=== PATIENT | male | born 1975 | race Hispanic/Latino ===

== ENCOUNTER 2019-11-03 12:18 | Emergency (ER) | payer SELFPAY ==
[2019-11-03] MEDS ORDERED: SODIUM CHLORIDE 0.9% 1000 ML 1,000 ML IV ONE ×2 (12:25→12:49)
[2019-11-03] MEDS ORDERED: PANTOPRAZOLE 40 MG INJ IV ONE (12:26)
--- NOTE | 2019-11-03 12:38 | Emergency Department Report ---
ED GI Bleed HPI - General Stated complaint: GI BLEED Time Seen by Provider: 11/03/19 12:23 Source: patient, EMS Mode of arrival: Stretcher Limitations: No Limitations - History of Present Illness Initial comments: 44-year-old male with a past medical history of [id number] diabetes and chronic alcohol abuse presents to the hospital complaining of vomiting blood multiple times since this a.m. Patient has had at least 4-5 episodes prior to arrival of grossly bloody vomitus. Patient feels his heart racing and some mild left-sided chest tightness. He denies abdominal pain, melena, hematochezia, or history of previous GI bleed. Patient takes metformin for his diabetes. Patient states he has been diagnosed with "an ulcer" in the past due to clinical symptoms but denies having endoscopy or colonoscopy in the past. Patient denies previous abdominal surgeries. Patient denies recent aspirin or NSAID use. Patient drinks about a pint of vodka daily with last drink last night. Denies history of previous alcohol withdrawal tremors, alcohol withdrawal seizures, or diagnosis of cirrhosis. PMD: None EMS EKG reviewed sinus tach rate 125 with PVCs and T wave inversions in [address] elevation [place]. - Related Data Allergies Allergy/AdvReac Type Severity Reaction Status Date / Time No Known Allergies Allergy Unverified 11/03/19 12:55 ED Review of Systems ROS: Stated complaint: GI BLEED Other details as noted in HPI Comment: All other systems reviewed and negative ED Physical Exam - Other Other exam information: General: No acute distress Head: Atraumatic Eyes: normal appearance ENT: Moist mucous membranes Neck: Normal appearance, no midline tenderness Chest: Clear to auscultation bilaterally CV: Tachycardia regular rhythm Abdomen: Soft, normal bowel sounds, nontender, nondistended, no rebound or guarding Back: Normal inspection Extremity: Normal inspection, full range of motion, no tremor Neuro: Alert O x 3, no facial asymmetry, speech clear, no gross motor sensory deficit Psych: Appropriate behavior Skin: No rash ED Course Vital Signs 11/03/19 11/03/19 11/03/19 12:39 14:48 16:05 Temperature 98.0 F 98.0 F 97.7 F Pulse Rate 126 H 112 H 111 H Respiratory 22 21 28 H Rate Blood Pressure 138/57 136/69 122/46 Blood Pressure 147/67 [Left] O2 Sat by Pulse 98 97 99 Oximetry 11/03/19 11/03/19 16:18 16:25 Temperature Pulse Rate 111 H 111 H Respiratory 28 H 24 Rate Blood Pressure 136/68 136/68 Blood Pressure [Left] O2 Sat by Pulse 95 98 Oximetry - Reevaluation(s) Reevaluation #1: 11/03/19 12:49 pt is actively vomiting up blood in the ed 11/03/19 13:39 HR improving with IVF but still tachycardic, bp stable, vomiting improved after zofran, - Consultations Consultation #1: 11/03/19 13:00 GI MD paged 11/03/19 13:30 call back from GI MD Dr Pham, informed of upper gi bleed and possible need for emergent endoscopy. Requesting covid test prior however covid tests are only collected once a day at 11am therefore can not be performed today. 11/03/19 18:54 I received call from Dr. gongora at this time the patient has been accepted to [facility] ICU by ICU attending Dr. Cook and bowling ball grader and marker Dr. Augustin ED Medical Decision Making - Lab Data Result diagrams: 11/03/19 17:15 11/03/19 12:35 Lab Results 11/03/19 11/03/19 11/03/19 Range/Units 12:35 12:35 12:35 WBC 7.9 (4.5-11.0) K/mm3 RBC 3.15 L (3.65-5.03) M/mm3 Hgb 9.8 L (11.8-15.2) gm/dl Hct 29.1 L (35.5-45.6) % MCV 92 (84-94) fl MCH 31 (28-32) pg MCHC 34 (32-34) % RDW 18.8 H (13.2-15.2) % Plt Count 75 L (140-440) K/mm3 Lymph % (Auto) 25.8 (13.4-35.0) % [place] % (Auto) 9.5 H (0.0-7.3) % Eos % (Auto) 0.9 (0.0-4.3) % Baso % (Auto) 0.6 (0.0-1.8) % Lymph # 2.0 (1.2-5.4) K/mm3 [place] # 0.7 (0.0-0.8) K/mm3 Eos # 0.1 (0.0-0.4) K/mm3 Baso # 0.0 (0.0-0.1) K/mm3 Seg Neutrophils % 63.2 (40.0-70.0) % Seg Neutrophils # 5.0 (1.8-7.7) K/mm3 PT 18.5 H (12.2-14.9) Sec. INR 1.51 H (0.87-1.13) APTT 28.8 (24.2-36.6) Sec. Sodium 140 (137-145) mmol/L Potassium 3.9 (3.6-5.0) mmol/L Chloride 101.5 (98-107) mmol/L Carbon Dioxide 20 L (22-30) mmol/L Anion Gap 22 mmol/L BUN 22 H (9-20) mg/dL Creatinine 0.5 L (0.8-1.3) mg/dL Estimated GFR > 60 ml/min BUN/Creatinine Ratio 44 % Glucose 310 H (75-100) mg/dL POC Glucose (70-105) Calcium 8.1 L (8.4-10.2) mg/dL Magnesium 1.50 L (1.7-2.3) mg/dL Total Bilirubin 2.70 H (0.1-1.2) mg/dL AST 84 H (5-40) units/L ALT 46 (7-56) units/L Alkaline Phosphatase 127 (35-129) units/L Troponin T (0.00-0.029) ng/mL Total Protein 7.1 (6.3-8.2) g/dL Albumin 2.7 L (3.9-5) g/dL Albumin/Globulin Ratio 0.6 % Plasma/Serum Alcohol (0-0.07) % Blood Type Antibody Screen Crossmatch 11/03/19 11/03/19 11/03/19 Range/Units 12:35 12:35 12:35 WBC (4.5-11.0) K/mm3 RBC (3.65-5.03) M/mm3 Hgb (11.8-15.2) gm/dl Hct (35.5-45.6) % MCV (84-94) fl MCH (28-32) pg MCHC (32-34) % RDW (13.2-15.2) % Plt Count (140-440) K/mm3 Lymph % (Auto) (13.4-35.0) % [place] % (Auto) (0.0-7.3) % Eos % (Auto) (0.0-4.3) % Baso % (Auto) (0.0-1.8) % Lymph # (1.2-5.4) K/mm3 [place] # (0.0-0.8) K/mm3 Eos # (0.0-0.4) K/mm3 Baso # (0.0-0.1) K/mm3 Seg Neutrophils % (40.0-70.0) % Seg Neutrophils # (1.8-7.7) K/mm3 PT (12.2-14.9) Sec. INR (0.87-1.13) APTT (24.2-36.6) Sec. Sodium (137-145) mmol/L Potassium (3.6-5.0) mmol/L Chloride (98-107) mmol/L Carbon Dioxide (22-30) mmol/L Anion Gap mmol/L BUN (9-20) mg/dL Creatinine (0.8-1.3) mg/dL Estimated GFR ml/min BUN/Creatinine Ratio % Glucose (75-100) mg/dL POC Glucose (70-105) Calcium (8.4-10.2) mg/dL Magnesium (1.7-2.3) mg/dL Total Bilirubin (0.1-1.2) mg/dL AST (5-40) units/L ALT (7-56) units/L Alkaline Phosphatase (35-129) units/L Troponin T < 0.010 (0.00-0.029) ng/mL Total Protein (6.3-8.2) g/dL Albumin (3.9-5) g/dL Albumin/Globulin Ratio % Plasma/Serum Alcohol 0.09 H (0-0.07) % Blood Type A POSITIVE Antibody Screen Negative Crossmatch See Detail 11/03/19 Range/Units 12:56 WBC (4.5-11.0) K/mm3 RBC (3.65-5.03) M/mm3 Hgb (11.8-15.2) gm/dl Hct (35.5-45.6) % MCV (84-94) fl MCH (28-32) pg MCHC (32-34) % RDW (13.2-15.2) % Plt Count (140-440) K/mm3 Lymph % (Auto) (13.4-35.0) % [place] % (Auto) (0.0-7.3) % Eos % (Auto) (0.0-4.3) % Baso % (Auto) (0.0-1.8) % Lymph # (1.2-5.4) K/mm3 [place] # (0.0-0.8) K/mm3 Eos # (0.0-0.4) K/mm3 Baso # (0.0-0.1) K/mm3 Seg Neutrophils % (40.0-70.0) % Seg Neutrophils # (1.8-7.7) K/mm3 PT (12.2-14.9) Sec. INR (0.87-1.13) APTT (24.2-36.6) Sec. Sodium (137-145) mmol/L Potassium (3.6-5.0) mmol/L Chloride (98-107) mmol/L Carbon Dioxide (22-30) mmol/L Anion Gap mmol/L BUN (9-20) mg/dL Creatinine (0.8-1.3) mg/dL Estimated GFR ml/min BUN/Creatinine Ratio % Glucose (75-100) mg/dL POC Glucose 304 H (70-105) Calcium (8.4-10.2) mg/dL Magnesium (1.7-2.3) mg/dL Total Bilirubin (0.1-1.2) mg/dL AST (5-40) units/L ALT (7-56) units/L Alkaline Phosphatase (35-129) units/L Troponin T (0.00-0.029) ng/mL Total Protein (6.3-8.2) g/dL Albumin (3.9-5) g/dL Albumin/Globulin Ratio % Plasma/Serum Alcohol (0-0.07) % Blood Type Antibody Screen Crossmatch - EKG Data -: EKG Interpreted by [place] EKG shows normal: sinus rhythm, intervals (qtc 531) Rate: tachycardia (110) - Medical Decision Making Patient with a history of chronic alcohol abuse presents to the hospital with leidy hematemesis. Multiple episodes noted in the ED. Patient has a hemoglobin 9.8, mild thrombocytopenia, and mild coagulopathy all supporting chronic alcohol abuse. Patient denies history of alcohol cirrhosis and has a previous clinical diagnosis of ulcer without confirmation via endoscopy. Patient treated emergently in the ED with normal saline boluses, banana bag, Protonix bolus and drip, octreotide bolus and drip, and emergent GI consultation for endoscopy. Patient empirically provided Rocephin in preparation for endoscopy. Patient symptomatically treated with Zofran and Ativan 0.5 mg to help with nausea and tachycardia which could also be due to mild alcohol withdrawal although patient does not have any tremors. GI consulted requesting COVID test prior to endoscopy however, this is not available at this facility. Hospitalist informed for admission and GI come to the ED to evaluate patient at time of disposition pt was scoped by gi and had esophageal varices banded and continued to have hematemesis. GI recommended transfer to a facility that can perform TIPS procedure. Dr Gongora spoke to ICU attending Dr. Cook and bowling ball grader and marker Dr. Augustin who accepted patient to ICU at [facility] at 6:57 PM Critical Care Time: Yes Critical care time in (mins) excluding proc time.: 35 Critical care attestation.: If time is entered above; I have spent that time in minutes in the direct care of this critically ill patient, excluding procedure time. ED Disposition Clinical Impression: Hematemesis, Alcoholic, Hypomagnesemia, Thrombocytopenia, Coagulopathy, Diabetes Disposition: OP ADMIT IP TO THIS HOSP Is pt being admited?: Yes Condition: Stable Time of Disposition: 13:38
[2019-11-03] MEDS ORDERED: ONDANSETRON 4 MG/2 ML INJ IV ONE (12:39)
[2019-11-03 12:46] LABS: Basophils % (Auto) 0.6 % (0.0-1.8); Eosinophils # (Auto) 0.1 K/mm3 (0.0-0.4); Eosinophils % (Auto) 0.9 % (0.0-4.3); Hematocrit 29.1 % (35.5-45.6); Hemoglobin 9.8 gm/dl (11.8-15.2); Lymphocytes % (Auto) 25.8 % (13.4-35.0); Mean Corpuscular HGB Conc 34 % (32-34); Mean Corpuscular Volume 92 fl (84-94); Monocytes # (Auto) 0.7 K/mm3 (0.0-0.8); Monocytes % (Auto) 9.5 % (0.0-7.3); Platelet Count 75 K/mm3 (140-440); Red Blood Count 3.15 M/mm3 (3.65-5.03); Red Cell Distribution Width 18.8 % (13.2-15.2)
[2019-11-03] MEDS ORDERED: OCTREOTIDE 50 MCG/1 ML INJ IV ONE (12:50)
[2019-11-03] MEDS ORDERED: OCTREOTIDE 500 MCG in SODIUM CHLORIDE 0.9% 100 ML IV ONE (12:50)
[2019-11-03] MEDS ORDERED: cefTRIAXone/NS 1 GM/50 ML 1 GM/50 ML BAG IV ONE (12:52)
[2019-11-03 12:56] LABS: INR 1.51 (0.87-1.13); Partial Thromboplastin Time 28.8 Sec. (24.2-36.6)
[2019-11-03] MEDS ORDERED: LORazepam 2 MG/ML VIAL IV ONE (12:58)
[2019-11-03] MEDS ORDERED: PANTOPRAZOLE 80 MG in SODIUM CHLORIDE 0.9% 100 ML IV SCH (13:00)
[2019-11-03 13:09] LABS: Alanine Aminotransferase 46 units/L (7-56); Albumin 2.7 g/dL (3.9-5); Blood Urea Nitrogen 22 mg/dL (9-20); Calcium 8.1 mg/dL (8.4-10.2); Hemolysis Index 8
[2019-11-03 13:16] LABS: BUN/Creatinine Ratio 44
[2019-11-03] MEDS ORDERED: MAGNESIUM SULFATE 2 GM/50 ML BAG IV ONE (13:18)
[2019-11-03] MEDS ORDERED: THIAMINE 100 MG, FOLIC ACID 1 MG, MULTIPLE VITAMIN INJ, ADULT 10 ML in SODIUM CHLORIDE ... IV ONE ×2 (13:25→20:00)
--- NOTE | 2019-11-03 13:39 | History and Physical Report ---
History of Present Illness Chief complaint: throwing up blood History of present illness: 44 YO Male with DM, Obesity Hypoventilation Syndrome, Metabolic Syndrome, ETOH Dependence presents to ED for evaluation. Patient states that he has experienced multiple episodes of "vomiting up blood" over the past 6 hours. Pat leatha reports at least 45 episodes of large volume bloody vomitus. Patient also reports feeling weak and feeling as though his heart was racing. EMS was notified and upon arrival the patient was found to be in distress and subsequently transported to [facility] for further care and evaluation of the afor ementioned symptoms. Patient seen and evaluated in the emergency department. Lab and imaging studies reviewed. Patient found to have upper GI bleed complicated by acute blood loss anemia suspected secondary to esophageal varices. GI team was consulted. Patient was seen and evaluated and underwent urgent endoscopic evaluation in the emergency department. Patient was found to have grade 4 esophageal varices and underwent banding as per GI team. Patient continues to have large-volume hematemesis after banding. Patient continues to have persistent tachycardia as well as symptomatic anemia. Patient initiated on octreotide drip, Protonix therapy, as well as packed red blood cell transfusion. Patient status discussed with gastroenterology team, as well as ED team and patient is recommended to be transferred to higher level of care for further intervention. Patient transfer is pending at this time. Past History Past Medical History: diabetes, other (See HPI) Past Surgical History: No surgical history, Other (Reviewed) Social history: single, alcohol abuse. denies: smoking Family history: diabetes, hypertension Medications and Allergies Allergies Allergy/AdvReac Type Severity Reaction Status Date / Time No Known Allergies Allergy Unverified 11/03/19 12:55 Active Meds: Active Medications Thiamine HCl 100 mg/ Folic Acid 1 mg/ Multivitamins/Minerals 10 ml/ Sodium Chloride 1,011.2 mls @ 500 mls/hr IV ONCE ONE Stop: 11/03/19 15:26 Last Admin: 11/03/19 13:25 Dose: 500 mls/hr Documented by: Pantoprazole Sodium 80 mg/ (Sodium Chloride) 100 mls @ 10 mls/hr IV DIRECT LEDY Sodium Chloride (Nacl 0.9% 1000 Ml) 1,000 mls @ 999 mls/hr IV BOLUS ONE Stop: 11/03/19 13:49 Last Admin: 11/03/19 12:56 Dose: 999 mls/hr Documented by: Octreotide Acetate 500 mcg/ (Sodium Chloride) 101 mls @ 10.1 mls/hr IV TITR ONE; Protocol Stop: 11/03/19 22:49 Magnesium Sulfate (Magnesium Sulfate 2gm/50ml) 2 gm in 50 mls @ 100 mls/hr IV ONCE ONE Stop: 11/03/19 13:47 Review of Systems Constitutional: no weight loss, no weight gain, no fever, no chills Ears, nose, mouth and throat: no ear pain, no tinnitis, no decreased hearing, no nasal congestion, no nasal discharge Cardiovascular: no chest pain, no rapid/irregular heart beat, no edema, no syncope Respiratory: no cough, no excessive sputum, no hemoptysis, no shortness of breath Gastrointestinal: nausea, vomiting, hematemesis, no constipation, no loss of appetite, no early satiety Genitourinary Male: no hematuria, no flank pain, no discharge, no urinary frequency, no urinary hesitancy Rectal: no pain, no incontinence, no bleeding Musculoskeletal: no neck stiffness, no shooting arm pain, no shooting leg pain, no redness of joints Integumentary: no rash, no pruritis, no redness, no sores, no jaundice Neurological: no paralysis, no weakness, no parathesias, no tingling, no seizures Psychiatric: no anxiety, no change in sleep habits, no insomnia, no hypersomnia, no change in libido Endocrine: no cold intolerance, no polydipsia, no polyuria, no excessive sweating Hematologic/Lymphatic: no easy bruising Allergic/Immunologic: no urticaria, no allergic rhinitis Exam - Constitutional Vitals: Temp Pulse Resp BP Pulse Ox 98.0 F 126 H 22 147/67 98 11/03/19 12:39 11/03/19 12:39 11/03/19 12:39 11/03/19 12:39 11/03/19 12:39 General appearance: Present: mild distress - EENT Eyes: Present: PERRL (Conjunctival pallor) ENT: hearing intact, other (Oral pharyngeal blood) - Neck Neck: Present: supple, normal ROM - Respiratory Respiratory effort: normal Respiratory: bilateral: CTA - Cardiovascular Rhythm: other (Tachycardia) Heart Sounds: Present: S1 & S2. Absent: rub, click - Extremities Extremities: pulses symmetrical, No edema Peripheral Pulses: within normal limits - Abdominal General gastrointestinal: Present: soft, non-tender, non-distended, normal bowel sounds Male genitourinary: Present: normal - Integumentary Integumentary: Present: clear, warm, dry - Musculoskeletal Musculoskeletal: generalized weakness - Psychiatric Psychiatric: appropriate mood/affect, intact judgment & insight - Neurologic Neurologic: CNII-XII intact, moves all extremities HEART Score - HEART Score Troponin: Troponin T < 0.010 ng/mL (0.00-0.029) 11/03/19 12:35 Results - Labs CBC & Chem 7: 11/03/19 12:35 11/03/19 12:35 Labs: Abnormal lab results 11/03/19 11/03/19 11/03/19 Range/Units 12:35 12:35 12:35 RBC 3.15 L (3.65-5.03) M/mm3 Hgb 9.8 L (11.8-15.2) gm/dl Hct 29.1 L (35.5-45.6) % RDW 18.8 H (13.2-15.2) % Plt Count 75 L (140-440) K/mm3 [place] % (Auto) 9.5 H (0.0-7.3) % PT 18.5 H (12.2-14.9) Sec. INR 1.51 H (0.87-1.13) Carbon Dioxide 20 L (22-30) mmol/L BUN 22 H (9-20) mg/dL Creatinine 0.5 L (0.8-1.3) mg/dL Glucose 310 H (75-100) mg/dL POC Glucose (70-105) Calcium 8.1 L (8.4-10.2) mg/dL Magnesium 1.50 L (1.7-2.3) mg/dL Total Bilirubin 2.70 H (0.1-1.2) mg/dL AST 84 H (5-40) units/L Albumin 2.7 L (3.9-5) g/dL Plasma/Serum Alcohol (0-0.07) % 11/03/19 11/03/19 Range/Units 12:35 12:56 RBC (3.65-5.03) M/mm3 Hgb (11.8-15.2) gm/dl Hct (35.5-45.6) % RDW (13.2-15.2) % Plt Count (140-440) K/mm3 [place] % (Auto) (0.0-7.3) % PT (12.2-14.9) Sec. INR (0.87-1.13) Carbon Dioxide (22-30) mmol/L BUN (9-20) mg/dL Creatinine (0.8-1.3) mg/dL Glucose (75-100) mg/dL POC Glucose 304 H (70-105) Calcium (8.4-10.2) mg/dL Magnesium (1.7-2.3) mg/dL Total Bilirubin (0.1-1.2) mg/dL AST (5-40) units/L Albumin (3.9-5) g/dL Plasma/Serum Alcohol 0.09 H (0-0.07) % Assessment and Plan - Patient Problems (1) GI bleed Current Visit: Yes Status: Acute Qualifiers: GI bleed type/associated pathology: gastrointestinal hemorrhage with hematemesis Qualified Code(s): K92.0 - Hematemesis Plan to address problem: GI team consulted, CBC, endoscopy as per GI team, PPI therapy, octreotide therapy, supportive care. Packed red blood cell transfusion as clinically indicated. The high probability of a clinically significant, sudden or life threatening deterioration of the [hematologic, neuro, GI] system(s) required my full and direct attention, intervention and personal management. The aggregate critical care time was [90] minutes. This time is in addition to time spent performing reported procedures but includes the following: [x] Data Review and interpretation [x] Patient assessment and monitoring of vital signs [x] Documentation [x] Medication orders and management (2) Esophageal varices with hemorrhage Current Visit: Yes Status: Acute Qualifiers: Esophageal varices type: unspecified type Qualified Code(s): I85.01 - Esophageal varices with bleeding Plan to address problem: GI team consulted. Endoscopy and banding as per GI team. Packed red blood cell transfusion, supportive care. (3) Alcohol dependence Current Visit: Yes Status: Acute Plan to address problem: Thiamine, folic acid, multivitamin daily, CIWA protocol. (4) Obesity hypoventilation syndrome Current Visit: Yes Status: Acute Plan to address problem: Supplemental oxygen, pulse oximetry, nebulizer therapy, noninvasive positive pressure ventilation as clinically indicated. CPAP at night. (5) Diabetes mellitus Current Visit: Yes Status: Acute Plan to address problem: Sliding scale insulin therapy, Accu-Chek, supportive care. (6) DVT prophylaxis Current Visit: Yes Status: Acute Plan to address problem: SCD to bilateral lower extremities while in bed, hold anticoagulation due to active upper GI bleed.
[2019-11-03] MEDS ORDERED: LORazepam 2 MG/ML VIAL IV PRN (13:43)
--- NOTE | 2019-11-03 13:52 | XRay Report ---
CHEST 1 VIEW INDICATION / CLINICAL INFORMATION: MAIN. COMPARISON: None available. FINDINGS: SUPPORT DEVICES: None. HEART / MEDIASTINUM: No significant abnormality. LUNGS / PLEURA: Low lung volumes. Scant linear opacities in the left lung base possibly representing atelectasis. No significant focal consolidation. No significant effusion. No pneumothorax. ADDITIONAL FINDINGS: No significant additional findings. IMPRESSION: 1. No acute findings. Signer Name: Yamil Iraheta MD Signed: 11/03/2019 1:47 PM Workstation Name: [id number]
[2019-11-03] MEDS ORDERED: SODIUM CHLORIDE 0.9% 1000 ML 1,000 ML IV SCH (14:30)
[2019-11-03] MEDS ORDERED: SODIUM CHLORIDE 0.9% 1000 ML 1,000 ML ONE ×2 (14:39→20:18)
[2019-11-03] MEDS ORDERED: WATER FOR IRRIG STERILE 250 ML BOTTLE IR ONE (14:39)
[2019-11-03] MEDS ORDERED: PHENYLEPHRINE/NS 1,000 MCG/10 ML SYRINGE (OR USE) IV ONE (15:00)
--- NOTE | 2019-11-03 15:06 | Gastroenterology Consultation ---
History of Present Illness - Reason for Consult Consult date: 11/03/19 GI bleed Requesting physician: MARIAM DARDEN - History of Present Illness This is a 44 yo male with pmh of DM, alcohol use presenting to the ED for 1 day h/o hematemesis. Reports having multiple episodes of vomiting blood since this morning along with chest tightness. No melena, hematochezia, or abdominal pain. He denies any prior h/o GI bleed. No prior EGD or colonoscopy. Last seen by PCP in [place] about 7 months ago and was told he was anemic. In the ED, noted to be tachycardic. Witnessed persistent hematemsis in the ED. Hgb 9.8 and platelets in 70s. Last use of alcohol yesterday evening. Past History Past Medical History: diabetes Past Surgical History: No surgical history Social history: alcohol abuse Family history: no significant family history Medications and Allergies Allergies Allergy/AdvReac Type Severity Reaction Status Date / Time No Known Allergies Allergy Unverified 11/03/19 12:55 Active Meds: Active Medications Pantoprazole Sodium 80 mg/ (Sodium Chloride) 100 mls @ 10 mls/hr IV DIRECT LEDY Last Admin: 11/03/19 14:21 Dose: 8 mg/hr, 10 mls/hr Documented by: Octreotide Acetate 500 mcg/ (Sodium Chloride) 101 mls @ 10.1 mls/hr IV TITR ONE; Protocol Stop: 11/03/19 22:49 Last Admin: 11/03/19 14:49 Dose: 50 mcg/hr, 10.1 mls/hr Documented by: Thiamine HCl 100 mg/ Folic Acid 1 mg/ Multivitamins/Minerals 10 ml/ Sodium Chloride 1,011.2 mls @ 500 mls/hr IV ONCE ONE Stop: 11/03/19 22:01 Sodium Chloride (Nacl 0.9% 1000 Ml) 1,000 mls @ 50 mls/hr IV DIRECT LEDY Lorazepam (Ativan) 2 mg IV Q1HR PRN PRN Reason: CIWA-Ar 8-15 Pantoprazole Sodium (Protonix) 40 mg IV BID LEDY Sodium Chloride (Sodium Chloride Flush Syringe 10 Ml) 10 ml IV BID LEDY Sodium Chloride (Sodium Chloride Flush Syringe 10 Ml) 10 ml IV PRN PRN PRN Reason: LINE FLUSH Review of Systems - Review of Systems Constitutional: no weight loss, no fever, no chills Cardiovascular: chest pain Respiratory: no cough, no shortness of breath Gastrointestinal: nausea, vomiting, hematemesis, no BRBPR, no melena, no hematochezia Rectal: no bleeding Neurological: no head injury Psychiatric: no anxiety Allergic/Immunologic: no wheezing Exam - Constitutional Vital Signs: Temp Pulse Resp BP Pulse Ox 98.0 F 126 H 22 147/67 98 11/03/19 12:39 11/03/19 12:39 11/03/19 12:39 11/03/19 12:39 11/03/19 12:39 General appearance: no acute distress - EENT Eyes: EOM intact ENT: hearing intact - Neck Neck: supple - Respiratory Respiratory effort: normal - Cardiovascular Rhythm: regular Heart Sounds: Present: S1 & S2 - Gastrointestinal General gastrointestinal: Present: soft, non-tender, non-distended - Integumentary Integumentary: Present: clear, warm - Psychiatric Psychiatric: appropriate mood/affect - Labs CBC & Chem 7: 11/03/19 12:35 11/03/19 12:35 Lab Results: Laboratory Results - last 24 hr 11/03/19 11/03/19 11/03/19 12:35 12:35 12:35 WBC 7.9 RBC 3.15 L Hgb 9.8 L Hct 29.1 L MCV 92 MCH 31 MCHC 34 RDW 18.8 H Plt Count 75 L Lymph % (Auto) 25.8 [place] % (Auto) 9.5 H Eos % (Auto) 0.9 Baso % (Auto) 0.6 Lymph # 2.0 [place] # 0.7 Eos # 0.1 Baso # 0.0 Seg Neutrophils % 63.2 Seg Neutrophils # 5.0 PT 18.5 H INR 1.51 H APTT 28.8 Sodium 140 Potassium 3.9 Chloride 101.5 Carbon Dioxide 20 L Anion Gap 22 BUN 22 H Creatinine 0.5 L Estimated GFR > 60 BUN/Creatinine Ratio 44 Glucose 310 H POC Glucose Calcium 8.1 L Magnesium 1.50 L Total Bilirubin 2.70 H AST 84 H ALT 46 Alkaline Phosphatase 127 Troponin T Total Protein 7.1 Albumin 2.7 L Albumin/Globulin Ratio 0.6 Plasma/Serum Alcohol Blood Type Antibody Screen 11/03/19 11/03/19 11/03/19 12:35 12:35 12:35 WBC RBC Hgb Hct MCV MCH MCHC RDW Plt Count Lymph % (Auto) [place] % (Auto) Eos % (Auto) Baso % (Auto) Lymph # [place] # Eos # Baso # Seg Neutrophils % Seg Neutrophils # PT INR APTT Sodium Potassium Chloride Carbon Dioxide Anion Gap BUN Creatinine Estimated GFR BUN/Creatinine Ratio Glucose POC Glucose Calcium Magnesium Total Bilirubin AST ALT Alkaline Phosphatase Troponin T < 0.010 Total Protein Albumin Albumin/Globulin Ratio Plasma/Serum Alcohol 0.09 H Blood Type A POSITIVE Antibody Screen Negative 11/03/19 12:56 WBC RBC Hgb Hct MCV MCH MCHC RDW Plt Count Lymph % (Auto) [place] % (Auto) Eos % (Auto) Baso % (Auto) Lymph # [place] # Eos # Baso # Seg Neutrophils % Seg Neutrophils # PT INR APTT Sodium Potassium Chloride Carbon Dioxide Anion Gap BUN Creatinine Estimated GFR BUN/Creatinine Ratio Glucose POC Glucose 304 H Calcium Magnesium Total Bilirubin AST ALT Alkaline Phosphatase Troponin T Total Protein Albumin Albumin/Globulin Ratio Plasma/Serum Alcohol Blood Type Antibody Screen Assessment and Plan # Upper GI bleed # Hematemesis - ddx including variceal bleeding, PUD, esophagitis, gastritis given h/o alcohol use. - will plan for EGD - cont with PPI IV and octreotide. - keep NPO. - IVF resuscitation. - monitor H/H.
[2019-11-03] MEDS ORDERED: fentaNYL 100 MCG/2 ML INJ ONE ×2 (15:15→15:25)
[2019-11-03] MEDS ORDERED: ONDANSETRON 4 MG/2 ML INJ ONE ×2 (15:15→20:18)
[2019-11-03] MEDS ORDERED: LIDOCAINE MPF (2%) 20 MG/1 ML VIAL 5 ML ONE (15:15)
[2019-11-03] MEDS ORDERED: KETAMINE/STERILE WATER 50 MG/ML SYRINGE ONE (15:16)
[2019-11-03] MEDS ORDERED: propofoL 200 MG/20 ML VIAL IV ONE ×3 (15:16)
[2019-11-03] MEDS ORDERED: fentaNYL 100 MCG/2 ML INJ IV ONE (15:25)
--- NOTE | 2019-11-03 16:37 | Anesthesia Consultation ---
Anesthesia Consult and Med Hx Date of service: 11/03/19 - Airway Anesthetic Teeth Evaluation: Good ROM Head & Neck: Adequate Mental/Hyoid Distance: Adequate Mallampati Class: Class III Intubation Access Assessment: Probably Good - Pulmonary Exam CTA: Yes - Pre-Operative Health Status ASA Pre-Surgery Classification: ASA3, Emergency Proposed Anesthetic Plan: MAC - Pulmonary Hx Smoking: Yes COPD: No Hx Sleep Apnea: No (Snores) - Cardiovascular System Hx Hypertension: No Hx Heart Attack/AMI: No Hx Percutaneous Transluminal Coronary Angioplasty (PTCA): No Hx Cardia Arrhythmia: Yes (Tachycardia) Hx Pacemaker: No - Central Nervous System Hx Neuromuscular Disorder: No Hx Seizures: No CVA: No - Gastrointestinal Hx Gastroesophageal Reflux Disease: Yes - Endocrine Hx Renal Disease: No Hx Liver Disease: Yes (Esophageal Varices) Hx Non-Insulin Dependent Diabetes: Yes (Blood Glucose- 305mg/dl) Hx Thyroid Disease: No - Hematic Hx Anemia: Yes - Other Systems Hx Alcohol Use: Yes (Gross ETOH Abuse) Hx Obesity: Yes (BMI 39.4kg) - Additional Comments Anesthesia Medical History Comments: Patient denied prervious anesthesia complications
--- NOTE | 2019-11-03 16:41 | Operative Report ---
Operative Report Operative Report: Date:11/03/2019 Pre procedure diagnosis:GI bleed Post procedure diagnosis:esophageal varices, gastric varices, portal hypertensive gastropathy Procedure: Esophagogastroduodenoscopy with banding ligation Endoscopist: Luis Armando Gongora MD Medications: Per anesthesia- see separate records for details Complications:none Estimated blood loss: ~200 cc After careful discussion of the nature and purpose of the procedure, details of the technique, risks, benefits and alternatives, the patient gave consent. The patient was placed in the left lateral decubitus position and medicated by anesthesia- see separate records for details. The tip of the olympus video upper scope was passed per orum under direct view through the mouth and into the esophagus, stomach and duodenum. The scope was advanced to the secondportion of the duodenum without difficulty. The second portion of the duodenumwasnormal. The bulb revealed normal findings. The scope was withdrawn back into the stomach and the stomach gently insufflated with air. The antrum revealed mild erythematous mucosa. The scope was then retroflexed and partially withdrawn to inspect the proximal stomach. Retroflexion view revealed suspected gastroesophageal varices (GOV 2) without active bleeding but the view was somewhat limited due to bleeding. There were changes of portal hypertensive gastropathy in the gastric body. Retained blood with clots in the gastric body noted and suctioned out. The scope was then withdrawn in the forward view. The esophagus showed 3-4 columns of large esophageal varices from the distal to mid esophagus. One of the columns had active bleeding with spurting blood as well as clots. The proximal esophagus was normal. A total of 5 bands were placed starting from most distally with success. The procedure was well tolerated and the patient was observed in the GI recovery unit. IMPRESSION: 1. Mid to distal 3-4 columns of large esophageal varices with active bleeding. Banding ligation performed with a total of five bands placed successfully. 2. Suspected gastoesophageal varices without active bleeding but limited view. 3. Portal Hypertensive gastropathy. Plan: 1. Admit to ICU. Keep NPO. 2. Monitor H/H serially and transfuse with Hgb goal >7. 3. Continue with PPI IV and octreotide IV. 4. Empiric antibiotics with ceftriaxone. 5. Recommend CT a/p with contrast to evaluate for cirrhosis and portal hypertension. 6. Low threshold to transfer to a tertiary center with capability for TIPS procedure in case of rebleed. Luis Armando Esquivel) MD [facility]
--- NOTE | 2019-11-03 16:43 | Anesthesia Day of Surgery ---
Anesthesia Day of Surgery - Day of Surgery Patient Examined: Yes Patient H&P Reviewed: Yes Patient is NPO: Yes
--- NOTE | 2019-11-03 16:58 | Post Anesthesia Evaluation ---
- Post Anesthesia Evaluation Patient Participated: Yes Airway Patent: Yes Stable Respiratory Function: Yes Nausea/Vomiting: No Temp > 96.8F: Yes Pain Manageable: Yes Adequeate Hydration: Yes Anesthesia Complications: No Block Receding Appropriately: Not Applicable Patient on Ventilator: No
--- NOTE | 2019-11-03 17:17 | Event Note ---
Date: 11/03/19 Patient pending transfer to higher level of care as per ED/GI teams.
[2019-11-03] MEDS ORDERED: SODIUM CHLORIDE 0.9% 500 ML 500 ML IV ONE (18:00)
[2019-11-03 18:12] LABS: Hematocrit 26.8 % (35.5-45.6); Hemoglobin 8.9 gm/dl (11.8-15.2); Mean Corpuscular HGB Conc 33 % (32-34); Mean Corpuscular Volume 93 fl (84-94); Red Blood Count 2.88 M/mm3 (3.65-5.03); Red Cell Distribution Width 18.6 % (13.2-15.2)
[2019-11-03 18:15] LABS: Platelet Count 49 K/mm3 (140-440)
--- NOTE | 2019-11-03 18:20 | Event Note ---
Date: 11/03/[address] Quiñonez with [facility] that the patient had recurrent episode of hematemesis post endoscopy. Noted to be tachycardic in HR in 110s. Assessed patient by bedside. No active vomiting but has blood with clots by bedside. - placed order for CT a/p - repeat labs ordered. - spoke with [facility] for transfer to [facility] for IR/hepatology support. Patient has been accepted and awaiting cardiac surgeon back regarding ICU bed availability. No call back from [facility]. - spoke with [facility] and patient accepted for transfer.
[2019-11-03 18:24] LABS: INR 1.51 (0.87-1.13)
[2019-11-03] MEDS ORDERED: MORPHINE 4 MG/1 ML INJ IV ONE (18:41)
[2019-11-03] MEDS ORDERED: MORPHINE 4 MG/1 ML INJ ONE (18:44)
--- NOTE | 2019-11-03 19:48 | Cat Scan Report ---
CT ABDOMEN AND PELVIS WITH IV CONTRAST INDICATION: evaluation for cirrhosis, portal hypertension. COMPARISON: None available. TECHNIQUE: All CT scans at this facility use dose modulation, automated exposure control, iterative reconstructi on or weight based dosing, when appropriate, to reduce radiation dose to as low as reasonably achieva ble. FINDINGS: Lung Bases: No significant abnormality. Skeletal System: No acute abnormality. ABDOMEN: Liver: The liver has a lobulated contour and is mildly enlarged. The liver is diffusely heterogeneous with innumerable punctate hypodensities. Gallbladder: There is mild gallbladder wall edema. Bile Ducts: No significant abnormality. Pancreas: No significant abnormality. Spleen: Spleen is enlarged measuring approximately 15-16 cm in craniocaudal dimension. Adrenals: No significant abnormality. Right Kidney: No significant abnormality. Left Kidney: No significant abnormality. Upper GI tract: No significant abnormality. Lymph Nodes: No significant adenopathy. Aorta: No significant abnormality. Additional Findings: There is no ascites. Multiple varices are seen in the mesentery and paraesophage al region. PELVIS: Colon: No acute abnormality. Urinary Bladder and Distal Ureters: No significant abnormality. Appendix: No significant abnormality. Lymph Nodes: No significant adenopathy. Additional Findings: None. IMPRESSION: 1. The liver has a cirrhotic configuration with portal hypertension evidenced by splenomegaly and va rices. Portal vein is patent and there is no ascites. 2. The liver has a diffusely heterogeneous appearance with innumerable punctate hypodensities. These are nonspecific. In the setting of cirrhosis, I cannot exclude infiltrative hepatocellular carcinoma . Multiphase CT or MRI may be useful to better characterize this. Comparison with priors, if availabl e, would be useful. Signer Name: Tapan Goetz MD Signed: 11/03/2019 7:43 PM Workstation Name: [id number]
[2019-11-03 20:43] VITALS: BP 186/86
[2019-11-03] MEDS ORDERED: PANTOPRAZOLE 40 MG INJ IV SCH (22:00)
== END 2019-11-03 21:28 | disposition admitted as inpatient to this hospital (09) ==
LOC: ED 12:18 → UNDOADMIN 14:45 → IMCU 14:45 → ED 21:28
DX: F10.20 Alcohol dependence, uncomplicated (principal); K92.2 Gastrointestinal hemorrhage, unspecified; D69.6 Thrombocytopenia, unspecified; E83.42 Hypomagnesemia
CPT/HCPCS: 36415; 36430; 71045; 74177; 80053; 82962; 83735; 84484; 85025; 85027; 85610; 85730; 86850; 86900; 86901; 86920; 93005; 99285; C9113; J0696; J2060; J2270; J2370; J2405; J2704; J3010; J3411; J3475; J3490; J7030; P9016; Q9967; 80320; G0480; J2354

== ENCOUNTER 2021-02-07 14:53 | Emergency (ER) | payer SELFPAY ==
--- NOTE | 2021-02-07 15:57 | XRay Report ---
CHEST 1 VIEW INDICATION / CLINICAL INFORMATION: chest pain. COMPARISON: 11/03/2019 FINDINGS: SUPPORT DEVICES: None. HEART / MEDIASTINUM: No significant abnormality. LUNGS / PLEURA: No significant pulmonary or pleural abnormality. No pneumothorax. ADDITIONAL FINDINGS: No significant additional findings. IMPRESSION: 1. No acute findings. Signer Name: Marty King MD Signed: 02/07/2021 3:53 PM Workstation Name: [id number]
[2021-02-07] MEDS ORDERED: PANTOPRAZOLE 40 MG INJ IV ONE (16:46)
--- NOTE | 2021-02-07 16:48 | Emergency Department Report ---
ED General Adult HPI - General Chief complaint: Weakness Stated complaint: I have left-sided weakness, my chest hurts, my stomach hurts, and I fell out Time Seen by Provider: 02/07/21 16:21 Source: patient, EMS ( EMS documentation not available at time of chart dictation ), RN notes reviewed, old records reviewed Mode of arrival: Ambulatory Limitations: Physical Limitation, Other (Patient is a poor historian) - History of Present Illness Initial comments: The patient is a 45-year-old gentleman. Past medical history includes cirrhosis, alcoholism, esophageal varices, and diabetes, as well as obesity. The patient presents to the ER today with a complaint of central chest pain since yesterday, report of ataxia since yesterday, possible episode of black stool, right-sided abdominal pain, passing out/falling out and possibly hitting his head, and left-sided weakness and numbness. The patient is not sure what time his symptoms started. He thinks that he fell and hit his head today at around 12:00 and afterwards had left-sided weakness and numbness, but he is not certain. He told nursing staff that he was having unsteady gait since yesterday. The patient also complains of central nonradiating chest pain, and possible black stool a few days ago. The patient also complains of right-sided abdominal pain. The patient remains compliant with his medications by history. The patient also states that he is not drinking alcohol. The patient also states that he is not homicidal suicidal. Patient denies travel, surgery, immobilization, leg pain or leg swelling -: unknown Location: chest, abdomen, left, upper extremity, lower extremity Radiation: non-radiation Severity scale (0 -10): 2 Quality: other (Patient does not describe the qualitative nature of his symptoms) Consistency: constant Improves with: none Worsens with: none - Related Data Previous Rx's Medication Instructions Recorded Last Taken Type Folic Acid 1 mg PO DAILY #30 tablet 02/07/21 Unknown Rx LORazepam [Ativan] 0.5 mg PO BID #14 tab 02/07/21 Unknown Rx Multivitamin Tab [Multiple Vitamin 1 each PO QDAY #30 tablet 02/07/21 Unknown Rx TAB (Theragran)] Thiamine [Vitamin B-1] 100 mg PO QDAY #30 tablet 02/07/21 Unknown Rx Allergies Allergy/AdvReac Type Severity Reaction Status Date / Time No Known Allergies Allergy Verified 02/07/21 14:59 ED Review of Systems ROS: Stated complaint: chest pain Other details as noted in HPI Constitutional: malaise, weakness. denies: fever Eyes: denies: eye discharge Respiratory: denies: cough Cardiovascular: chest pain Gastrointestinal: abdominal pain, melena. denies: nausea, vomiting, hematochezia Genitourinary: denies: dysuria Musculoskeletal: arthralgia, myalgia Neurological: headache, weakness, numbness Psychiatric: anxiety. denies: homicidal thoughts, suicidal thoughts ED Past Medical Hx - Past Medical History Hx Hypertension: No Hx Heart Attack/AMI: No Hx Diabetes: Yes Hx Liver Disease: Yes (Esophageal Varices) Hx Renal Disease: No Hx Seizures: No Hx COPD: No - Surgical History Hx Pacemaker: No - Social History Smoking Status: Current Some Day Smoker Substance Use Type: Alcohol - Medications Home Medications: Home Medications Medication Instructions Recorded Confirmed Last Taken Type Folic Acid 1 mg PO DAILY #30 tablet 02/07/21 Unknown Rx LORazepam [Ativan] 0.5 mg PO BID #14 tab 02/07/21 Unknown Rx Multivitamin Tab [Multiple Vitamin 1 each PO QDAY #30 tablet 02/07/21 Unknown Rx TAB (Theragran)] Thiamine [Vitamin B-1] 100 mg PO QDAY #30 tablet 02/07/21 Unknown Rx ED Physical Exam - General Limitations: Physical Limitation General appearance: alert, anxious, obese - Head Head exam: Present: atraumatic, normocephalic - Eye Eye exam: Present: normal appearance, EOMI. Absent: nystagmus - ENT ENT exam: Present: normal exam, normal orophraynx, mucous membranes moist, normal external ear exam - Neck Neck exam: Present: normal inspection, full ROM. Absent: tenderness, meningismus - Respiratory Respiratory exam: Present: normal lung sounds bilaterally. Absent: respiratory distress, wheezes, rales, rhonchi, stridor, decreased breath sounds - Cardiovascular Cardiovascular Exam: Present: regular rate, normal rhythm, normal heart sounds. Absent: bradycardia, tachycardia, irregular rhythm, systolic murmur, diastolic murmur, rubs, gallop - GI/Abdominal GI/Abdominal exam: Present: soft, tenderness (There is minimal right-sided abdominal tenderness). Absent: distended, guarding, rebound, rigid, pulsatile mass - Rectal Rectal exam: Present: normal inspection, heme (-) stool, other (Chaperoned by nurse Cleo Romero). Absent: heme (+) stool, black stool, bloody stool, fecal impaction - Extremities Exam Extremities exam: Present: normal inspection, full ROM, pedal edema, other (2+ pulses noted in the bilateral upper and lower extremities. There is no palpable cord. negative Homans sign. Muscular compartments are soft. The pelvis is stable.). Absent: calf tenderness - Back Exam Back exam: Present: normal inspection. Absent: tenderness, CVA tenderness (R), CVA tenderness (L), paraspinal tenderness, vertebral tenderness - Neurological Exam Neurological exam: Present: alert, oriented X3, motor sensory deficit (There is decrease in station to light touch left arm and left leg. There is 4-5 strength left arm and left leg.), other (There is no facial droop. The tongue is midline. EOMI. 5 out of 5 strength in right arm and right leg, intact sensation to light touch right arm and right leg) - Psychiatric Psychiatric exam: Present: anxious. Absent: homicidal ideation, suicidal ideation - Skin Skin exam: Present: warm, dry, intact, normal color. Absent: rash ED Course Vital Signs 02/07/21 02/07/21 02/07/21 14:58 15:16 15:31 Temperature 98.6 F Pulse Rate 97 H Respiratory 20 Rate Blood Pressure 107/50 O2 Sat by Pulse 99 97 94 Oximetry 02/07/21 02/07/21 02/07/21 15:45 16:01 16:15 Temperature Pulse Rate 96 H 95 H 106 H Respiratory 15 24 26 H Rate Blood Pressure 88/52 126/64 118/57 O2 Sat by Pulse 97 95 96 Oximetry 02/07/21 02/07/21 16:31 16:45 Temperature Pulse Rate 92 H 93 H Respiratory 21 15 Rate Blood Pressure 127/59 108/47 O2 Sat by Pulse 96 98 Oximetry - Reevaluation(s) Reevaluation #1: 02/07/21 18:24 Differential diagnosis, including but not limited to: GERD, gastritis, hiatal hernia, pneumonia, costochondritis, esophageal varices, gastritis, stroke, large vessel occlusion, aortic dissection, closed head injury, cervical spine injury GI bleed Assessment and plan: 45-year-old gentleman, who is not currently tachypneic or hypoxic, who denies DVT and pulmonary embolism risk factors, who is low risk by Wells criteria for pulmonary embolism, presenting to the ER with abdominal pain, chest pain, history of black stool, no blood on my rectal examination, with minimal right-sided abdominal tenderness, without rebound, guarding or peritoneal signs, troponin negative x1, EKG unchanged from prior, with also complaint of left-sided weakness and numbness, and also report of trip and fall. CT scan of the brain and cervical spine obtained, which demonstrated no acute traumatic findings. Patient not a TPA candidate given history of possible black stool, and unclear last known well time. CT angiogram head and neck was obtai sunita, which demonstrated no evidence of aortic dissection, large vessel occlusion or carotid dissection. CT scan of the abdomen pelvis demonstrated no acute findings. Laboratory studies demonstrated transaminitis, and evidence of alcohol intoxication. Patient seen and evaluated by stroke neurology their recommendations are reviewed and appreciated. He will be treated with Protonix, admitted to the medical service under the care of Dr. Quiñonez. I will withhold aspirin given thrombocytopenia 02/07/21 18:54 02/07/21 18:55 ED Medical Decision Making - Lab Data Result diagrams: 02/07/21 16:29 02/07/21 17:19 Vital Signs 02/07/21 02/07/21 02/07/21 14:58 15:16 15:31 Temperature 98.6 F Pulse Rate 97 H Respiratory 20 Rate Blood Pressure 107/50 O2 Sat by Pulse 99 97 94 Oximetry 02/07/21 02/07/21 02/07/21 15:45 16:01 16:15 Temperature Pulse Rate 96 H 95 H 106 H Respiratory 15 24 26 H Rate Blood Pressure 88/52 126/64 118/57 O2 Sat by Pulse 97 95 96 Oximetry 02/07/21 02/07/21 16:31 16:45 Temperature Pulse Rate 92 H 93 H Respiratory 21 15 Rate Blood Pressure 127/59 108/47 O2 Sat by Pulse 96 98 Oximetry Lab Results 02/07/21 02/07/21 02/07/21 Range/Units 16:29 16:29 16:49 WBC 3.6 L (4.5-11.0) K/mm3 RBC 3.72 (3.65-5.03) M/mm3 Hgb 11.8 (11.8-15.2) gm/dl Hct 34.9 L (35.5-45.6) % MCV 94 (84-94) fl MCH 32 (28-32) pg MCHC 34 (32-34) % RDW 16.0 H (13.2-15.2) % Plt Count 36 L (140-440) K/mm3 Lymph % (Auto) 29.0 (13.4-35.0) % [place] % (Auto) 8.6 H (0.0-7.3) % Eos % (Auto) 2.1 (0.0-4.3) % Baso % (Auto) 0.5 (0.0-1.8) % Lymph # (Auto) 1.0 L (1.2-5.4) K/mm3 [place] # (Auto) 0.3 (0.0-0.8) K/mm3 Eos # (Auto) 0.1 (0.0-0.4) K/mm3 Baso # (Auto) 0.0 (0.0-0.1) K/mm3 Seg Neutrophils % 59.8 (40.0-70.0) % Seg Neutrophils # 2.2 (1.8-7.7) K/mm3 PT (12.2-14.9) Sec. INR (0.87-1.13) APTT (24.2-36.6) Sec. Thrombin Time (15.1-19.6) Sec. Sodium 138 (137-145) mmol/L Potassium 4.0 (3.6-5.0) mmol/L Chloride 102.4 (98-107) mmol/L Carbon Dioxide 21 L (22-30) mmol/L Anion Gap 19 mmol/L BUN 10 (9-20) mg/dL Creatinine 0.6 L (0.8-1.3) mg/dL Estimated GFR > 60 ml/min BUN/Creatinine Ratio 17 % Glucose 276 H (75-100) mg/dL POC Glucose 239 H (70-105) mg/dL Calcium 8.1 L (8.4-10.2) mg/dL Total Bilirubin (0.1-1.2) mg/dL AST (5-40) units/L ALT (7-56) units/L Alkaline Phosphatase (35-129) units/L Troponin T < 0.010 (0.00-0.029) ng/mL Total Protein (6.3-8.2) g/dL Albumin (3.9-5) g/dL Albumin/Globulin Ratio % Plasma/Serum Alcohol (0-0.07) % 02/07/21 02/07/21 02/07/21 Range/Units 17:19 17:19 17:19 WBC (4.5-11.0) K/mm3 RBC (3.65-5.03) M/mm3 Hgb (11.8-15.2) gm/dl Hct (35.5-45.6) % MCV (84-94) fl MCH (28-32) pg MCHC (32-34) % RDW (13.2-15.2) % Plt Count (140-440) K/mm3 Lymph % (Auto) (13.4-35.0) % Karnes % (Auto) (0.0-7.3) % Eos % (Auto) (0.0-4.3) % Baso % (Auto) (0.0-1.8) % Lymph # (Auto) (1.2-5.4) K/mm3 Karnes # (Auto) (0.0-0.8) K/mm3 Eos # (Auto) (0.0-0.4) K/mm3 Baso # (Auto) (0.0-0.1) K/mm3 Seg Neutrophils % (40.0-70.0) % Seg Neutrophils # (1.8-7.7) K/mm3 PT 18.0 H (12.2-14.9) Sec. INR 1.35 H (0.87-1.13) APTT 33.3 (24.2-36.6) Sec. Thrombin Time 20.3 H (15.1-19.6) Sec. Sodium 138 (137-145) mmol/L Potassium 4.1 (3.6-5.0) mmol/L Chloride 103.2 (98-107) mmol/L Carbon Dioxide 22 (22-30) mmol/L Anion Gap 17 mmol/L BUN 11 (9-20) mg/dL Creatinine 0.5 L (0.8-1.3) mg/dL Estimated GFR > 60 ml/min BUN/Creatinine Ratio 22 % Glucose 263 H (75-100) mg/dL POC Glucose (70-105) mg/dL Calcium 8.1 L (8.4-10.2) mg/dL Total Bilirubin 2.90 H (0.1-1.2) mg/dL AST 80 H (5-40) units/L ALT 49 (7-56) units/L Alkaline Phosphatase 156 H (35-129) units/L Troponin T (0.00-0.029) ng/mL Total Protein 7.4 (6.3-8.2) g/dL Albumin 2.7 L (3.9-5) g/dL Albumin/Globulin Ratio 0.6 % Plasma/Serum Alcohol 0.13 H (0-0.07) % - EKG Data -: EKG Interpreted by [facility] EKG shows normal: sinus rhythm Rate: normal - EKG Data 02/07/21 18:17 The EKG is interpreted at 15: 54 Sinus rhythm, 95 bpm. Normal axis, QTC 4 9 9 ms, left ventricular hypertrophy, nonspecific ST abnormality. This is an abnormal EKG. This is not a STEMI. This appears to be unchanged when compared to prior EKG from October 2019 - Radiology Data Radiology results: pending, report reviewed, image reviewed CTA head with intravenous contrast CLINICAL HISTORY: stroke sx TECHNIQUE: 0.625 mm thick contiguous axial scans were obtained from the skull base to the skull vertex during rapid bolus administration of intravenous contrast material. Multiplanar reconstructions were produced in the coronal and sagittal planes. In addition 3 plane MIP instructions were produced and reviewed for this report. The axial source images and reconstructed images were reviewed for this report. CONTRAST DOSE REPORT: Omnipaque 350: 80 ml administered intravenously. All CT scans at this location are performed using CT dose reduction for ALARA by means of automated exposure control. FINDINGS: Internal carotid arteries:Huang, cavernous, opthalmic, clinoid and supraclinoid segments of the ICAs have an unremarkable appearance. Middle cerebral arteries:Normal and symmetrical M1 seg ments of the middle cerebral arteries are demonstrated. No abnormalities are seen on evaluation of the insular or opercular branches. Anterior cerebral arteries:Bilaterally symmetrical A1 segments are demonstrated. No abnormalities are seen along the course of the A2 segments or their visualized pericallosal branches. Vertebral arteries:Bilaterally symmetrical vertebral arteries are demonstrated. Both vertebral arteries contribute to the basilar artery origin. Basilar artery:Basilar artery has an unremarkable appearance. Posterior cerebral arteries:Bilaterally symmetrical posterior cerebral arteries are identified. A unilateral left-sided posterior communicating artery is identified. [place] of [place]:Not intact. see above. Dural sinuses: Dural venous sinuses are well demonstrated on this exam. There is no evidence of dural sinus thrombosis. IMPRESSION: 1. No indication of intercranial stenosis or large vessel occlusion. Signer Name: Ronny Mansfield MD Signed: 02/07/2021 5:02 PM Workstation Name: [id number] CTA neck without and with intravenous contrast material CLINICAL HISTORY: stroke sx TECHNIQUE: Following acquisition of a timing bolus 0.625 mm thick contiguous axial scans were obtained from aortic arch to the skull base during rapid bolus intravenous contrast infusion. In addition to evaluation of axial source images multiplanar reconstructions were produced and reviewed for this report. 3 plane MIP reconstructions were produced and reviewed. Contrast dose report: Omnipaque 300: ml, administered intravenously All CT examinations performed at this facility utilize modulated dose reduction, iterative reconstruction or weight-based dosing, as appropriate, to obtain a radiation dose which is as low as can reasonably be achieved. FINDINGS: Limitations: Scan timing versus timing of the contrast bolus was suboptimal with decreased contrast opacification of the thoracic aorta and brachiocephalic vessels. Thoracic aorta:No abnormalities are identified along the course of the thoracic aorta..The origins of the great vessels have an unremarkable appearance. Brachiocephalic artery, left common carotid artery origin and left subclavian artery all have an unremarkable appearance. Right carotid artery:No abnormalities are seen along the course of the RCCA, at the right carotid bifurcation or along the cervical portions of the CHUY. Left carotid artery: Minimal calcified plaque is seen along the medial aspect of the left carotid bulb. No significant abnormalities are noted along the course of the left common carotid artery, at the left carotid bifurcation or along the course of the cervical segments of the LICA. Posterior circulation:The vertebral arteries have an unremarkable appearance. Both vertebral arteries contribute to the basilar artery origin. The basilar artery has an unremarkable appearance. The degree of stenosis, if any, is determined utilizing NASCET like criteria. In this case there is no indication of hemodynamically significant stenosis at the carotid bifurcations or elsewhere. Evaluation of the nonvascular soft tissue structures reveal no abnormality. There is no indication of cervical lymphadenopathy. No abnormalities are seen along the course of the airway. Visualized portions of the parotid glands and the submandibular salivary glands have a normal appearance. Thyroid gland has a normal appearance. Evaluation of the lung apices reveals no evidence of lung nodule or infiltrate. Evaluation of the cervical spine revealed no significant abnormalities. IMPRESSION: 1. Limited study as noted above. 2. No indication of hemodynamically significant stenosis or large vessel occlusion. Signer Name: Ronny Mansfield MD Signed: 02/07/2021 4:52 PM Workstation Name: [id number] CT ABDOMEN AND PELVIS WITH CONTRAST INDICATION / CLINICAL INFORMATION: right sided abd pain. TECHNIQUE: Axial CT images were obtained through the abdomen and pelvis after IV contrast. All CT scans at this location are performed using CT dose reduction for [employer] by means of automated exposure control. COMPARISON: 11/03/2019 FINDINGS: LOWER CHEST: No significant abnormality. LIVER: Surgical changes from prior TIPS procedure is demonstrated. Cirrhotic morphology of the liver without focal lesion identified. Findings consistent with portal venous hypertension and varices are noted within the upper abdomen. GALLBLADDER: No significant abnormality. PANCREAS: No significant abnormality. SPLEEN: Enlarged. ADRENALS: No significant abnormality. RIGHT KIDNEY / URETER: No significant abnormality. LEFT KIDNEY / URETER: No significant abnormality. STOMACH / SMALL BOWEL: No significant abnormality. COLON: No significant abnormality. APPENDIX: No significant abnormality. PERITONEUM: No free fluid, free air or organized collection. LYMPH NODES: No significant adenopathy. AORTA / ARTERIES/ VEINS: No significant abnormality. URINARY BLADDER: No significant abnormality. REPRODUCTIVE ORGANS: No significant abnormality. ADDITIONAL FINDINGS: None. SKELETAL SYSTEM: No significant abnormality. IMPRESSION: 1. No acute abnor mality. 2. Hepatic cirrhosis and findings consistent with portal venous hypertension. Prior surgical changes from TIPS procedure without definite abnormality on CT. Signer Name: Marty King MD Signed: 02/07/2021 4:58 PM Workstation Name: [id number] CT CERVICAL SPINE WITHOUT CONTRAST INDICATION / CLINICAL INFORMATION: fall left sided numbness/weakness. TECHNIQUE: Axial CT images were obtained through the cervical spine. Sagittal and coronal reformatted images were produced. All CT scans at this location are performed using CT dose reduction for ALARA by means of automated exposure control. COMPARISON: None available. FINDINGS: ALIGNMENT: No significant abnormality. VERTEBRAE: No indication of fracture or bone destruction. DISC SPACES: Disc height is fairly well-maintained. DEGENERATIVE CHANGES: Anterior and posterior osteophyte formation is observed at the C2-3 and C3-4 levels with anterior osteophyte evident at the C5-6 and C6-7 levels. In spite of these degenerative changes there is no indication of central canal stenosis or significant neuroforaminal narrowing. Osteoarthritic changes are observed at the atlantoaxial junction between the anterior arch of C1 and t he odontoid process. CRANIOCERVICAL JUNCTION:No significant abnormality. SPINAL CANAL: Central spinal canal is adequately maintained throughout. PARASPINAL SOFT TISSUES: No significant abnormality. ADDITIONAL FINDINGS: None. LUNG APICES: No significant abnormality of visualized lungs. IMPRESSION: 1. Mild cervical spondylosis without evidence of central canal stenosis or significant neuroforaminal narrowing. Signer Name: Ronny Mansfield MD Signed: 02/07/2021 5:05 PM Workstation Name: [email or web address] CT HEAD WITHOUT CONTRAST INDICATION / CLINICAL INFORMATION: Stroke symptoms. TECHNIQUE: All CT scans at this location are performed using CT dose reduction for ALARA by means of automated exposure control. COMPARISON: None available. FINDINGS: HEMORRHAGE: No evidence of intracranial hemorrhage or extra-axial fluid collection. EXTRA-AXIAL SPACES: Cortical sulci, sylvian fissures and bas ilar cisterns have an unremarkable appearance. VENTRICULAR SYSTEM: Developmental asymmetry of the lateral ventricles is demonstrated, right larger than left. The third and lateral ventricles are otherwise of normal size and configuration. CEREBRAL PARENCHYMA: No areas of abnormal brain parenchymal attenuation are identified. There is no indication of recent infarction. MIDLINE SHIFT OR HERNIATION: There is no mass effect. CEREBELLUM / BRAINSTEM: Brainstem and cerebellum have an unremarkable appearance. MIDLINE STRUCTURES:No abnormalities of the pituitary gland or pineal region are identified. INTRACRANIAL VESSELS:No abnormalities are identified on this noncontrast head CT. ORBITS: visualized portions of the orbits have an unremarkable appearance. SOFT TISSUES of HEAD: No significant abnormality. CALVARIUM: Evaluation of bone windows reveals no abnormalities. PARANASAL SINUSES / MASTOID AIR CELLS: Visualized portions of the paranasal sinuses are free from inflammatory mucosal disease. Mastoid air cells are normally pneumatized. IMPRESSION: 1. No significant intercranial abnormality on head CT without contrast. Signer Name: Ronny Mansfield MD Signed: 02/07/2021 4:50 PM Workstation Name: [email or web address] [email or web address] 1 VIEW INDICATION / CLINICAL INFORMATION: chest pain. COMPARISON: 11/03/2019 FINDINGS: SUPPORT DEVICES: None. HEART / MEDIASTINUM: No significant abnormality. LUNGS / PLEURA: No significant pulmonary or pleural abnormality. No pneumothorax. ADDITIONAL FINDINGS: No significant additional findings. IMPRESSION: 1. No acute findings. Signer Name: Marty King MD Signed: 02/07/2021 2:53 PM Workstation Name: [id number] Critical care attestation.: If time is entered above; I have spent that time in minutes in the direct care of this critically ill patient, excluding procedure time. ED Disposition Clinical Impression: Acute chest pain, Acute abdominal pain, Left-sided weakness, Thrombocytopenia, Cirrhosis, Alcohol intoxication, Fall, Coagulopathy Disposition: ADMITTED INPATIENT Is pt being admited?: Yes Does the pt Need Aspirin: No Condition: Fair Instructions: Chest Pain (ED) Prescriptions: LORazepam [Ativan] 0.5 mg PO BID #14 tab Folic Acid 1 mg PO DAILY #30 tablet Multivitamin Tab [Multiple Vitamin TAB (Theragran)] 1 each PO QDAY #30 tablet Thiamine [Vitamin B-1] 100 mg PO QDAY #30 tablet Heart Score - HEART Score History: Slightly suspicious EKG: Non-specific Age: 45-65 Risk factors: > 3 risk factors or hx of atherosclerotic disease Troponin: < normal limit HEART Score: 4 - EKG Read Time Time EKG Completed: 15:54 EKG Read Time: 15:54 - Critical Actions Critical Actions: 4-6 pts:12-16.6% risk of adverse cardiac event. Should be admitted
--- NOTE | 2021-02-07 17:18 | Consultation ---
History of Present Illness - Reason for Consult Consult date: 02/07/21 - History of Present Illness [facility] Consult Note # Demographics Consult Type: Acute Stroke Level 1 (0-4.5 hrs) Patient Location: Emergency Room First Name: Albin Last Name: Hallie Date of : 1975 Age: 45 Gender: Male Facility: [facility] Time of Initial Page ( Time): 02/07/2021, 16:47 Time of Return Call ( Time): 02/07/2021, 16:50 # HPI History: 45yo man who presents with left sided numbness and LOC episode. He states that he has chest pain also. He has persistent numbness on the left side. Time of onset is not clear # Scores Time of exam and NIHSS ( Time): 02/07/2021, 16:53 Level of Consciousness 1a: [0] = Alert; keenly responsive LOC Questions 1b: [0] = Answers both questions correctly LOC Commands 1c: [0] = Performs both tasks correctly Best Gaze 2: [0] = Normal Visual 3: [0] = No visual loss Facial Palsy 4: [0] = Normal symmetrical movements Motor Arm Left 5a: [1] = Drift Motor Arm Right 5b: [0] = No drift Motor Leg Left 6a: [1] = Drift Motor Leg Right 6b: [0] = No drift Limb Ataxia 7: [0] = Absent Sensory 8: [1] = Kjoa-vy-qoeagsfx sensory loss Best Language 9: [0] = No aphasia Dysarthria 10: [0] = Normal Extinction and Inattention 11: [0] = No abnormality NIHSS Total: 3 # ROS Additional: possible black tarry stool # PMH-FH-SH Past Medical History: cirrhosis # Assessment Impression: Weakness possible stroke # Plan Thrombolytic/Intervention: NOT IV Thrombolysis or IA Intervention candidate Thrombolytic Exclusion (< 3 hour window): time of onset unclear Intraarterial Exclusion: clinically consistent with small vessel disease Target Blood Pressure: SBP < 220 Labs: ESR lipid panel Imaging: (urgency: STAT): CT Angiogram Head and CT Angiogram Neck Imaging: (urgency: routine): MRI Brain without contrast Diagnostic Test: echo without bubble study Therapy/Evaluation: NPO until swallow evaluation PT/OT evaluation speech/swallow consultation Medication: aspirin 81 mg daily DVT Prophylaxis: SCD chemical DVT prophylaxis Other: permissive hypertension telemetry monitoring I have discussed my recommendations with the referring provider Disposition: admit Medications and Allergies Allergies Allergy/AdvReac Type Severity Reaction Status Date / Time No Known Allergies Allergy Verified 02/07/21 14:59 Exam - Constitutional Vitals: Temp Pulse Resp BP Pulse Ox 98.6 F 93 H 15 108/47 98 02/07/21 14:58 02/07/21 16:45 02/07/21 16:45 02/07/21 16:45 02/07/21 16:45 Results - Labs Labs: Abnormal lab results 02/07/21 Range/Units 16:49 POC Glucose 239 H (70-105) mg/dL
[2021-02-07 17:35] LABS: Basophils % (Auto) 0.5 % (0.0-1.8); Eosinophils # (Auto) 0.1 K/mm3 (0.0-0.4); Eosinophils % (Auto) 2.1 % (0.0-4.3); Hematocrit 34.9 % (35.5-45.6); Hemoglobin 11.8 gm/dl (11.8-15.2); Mean Corpuscular HGB Conc 34 % (32-34); Mean Corpuscular Volume 94 fl (84-94); Monocytes # (Auto) 0.3 K/mm3 (0.0-0.8); Monocytes % (Auto) 8.6 % (0.0-7.3); Red Blood Count 3.72 M/mm3 (3.65-5.03)
[2021-02-07 17:42] LABS: Platelet Count 36 K/mm3 (140-440)
[2021-02-07 17:54] LABS: Alanine Aminotransferase 49 units/L (7-56); Albumin 2.7 g/dL (3.9-5); Blood Urea Nitrogen 11 mg/dL (9-20); Calcium 8.1 mg/dL (8.4-10.2); Hemolysis Index 40
--- NOTE | 2021-02-07 17:54 | Cat Scan Report ---
CT HEAD WITHOUT CONTRAST INDICATION / CLINICAL INFORMATION: Stroke symptoms. TECHNIQUE: All CT scans at this location are performed using CT dose reduction for ALARA by means of automated e xposure control. COMPARISON: None available. FINDINGS: HEMORRHAGE: No evidence of intracranial hemorrhage or extra-axial fluid collection. EXTRA-AXIAL SPACES: Cortical sulci, sylvian fissures and basilar cisterns have an unremarkable appear ance. VENTRICULAR SYSTEM: Developmental asymmetry of the lateral ventricles is demonstrated, right larger t lock left. The third and lateral ventricles are otherwise of normal size and configuration. CEREBRAL PARENCHYMA: No areas of abnormal brain parenchymal attenuation are identified. There is no i ndication of recent infarction. MIDLINE SHIFT OR HERNIATION: There is no mass effect. CEREBELLUM / BRAINSTEM: Brainstem and cerebellum have an unremarkable appearance. MIDLINE STRUCTURES:No abnormalities of the pituitary gland or pineal region are identified. INTRACRANIAL VESSELS:No abnormalities are identified on this noncontrast head CT. ORBITS: visualized portions of the orbits have an unremarkable appearance. SOFT TISSUES of HEAD: No significant abnormality. CALVARIUM: Evaluation of bone windows reveals no abnormalities. PARANASAL SINUSES / MASTOID AIR CELLS: Visualized portions of the paranasal sinuses are free from inf lammatory mucosal disease. Mastoid air cells are normally pneumatized. IMPRESSION: 1. No significant intercranial abnormality on head CT without contrast. Signer Name: Ronny Mansfield MD Signed: 02/07/2021 5:50 PM Workstation Name: [id number]
[2021-02-07 17:55] LABS: Blood Urea Nitrogen 10 mg/dL (9-20); Calcium 8.1 mg/dL (8.4-10.2); Hemolysis Index 16
[2021-02-07 17:56] LABS: BUN/Creatinine Ratio 22
[2021-02-07 17:56] LABS: BUN/Creatinine Ratio 17
--- NOTE | 2021-02-07 17:57 | Cat Scan Report ---
CTA neck without and with intravenous contrast material CLINICAL HISTORY: stroke sx TECHNIQUE: Following acquisition of a timing bolus 0.625 mm thick contiguous axial scans were obtained from aort ic arch to the skull base during rapid bolus intravenous contrast infusion. In addition to evaluation of axial source images multiplanar reconstructions were produced and reviewed for this report. 3 cassandra ne MIP reconstructions were produced and reviewed. Contrast dose report: Omnipaque 300: ml, administered intravenously All CT examinations performed at this facility utilize modulated dose reduction, iterative reconstruc tion or weight-based dosing, as appropriate, to obtain a radiation dose which is as low as can reason ably be achieved. FINDINGS: Limitations: Scan timing versus timing of the contrast bolus was suboptimal with decreased contrast o pacification of the thoracic aorta and brachiocephalic vessels. Thoracic aorta:No abnormalities are identified along the course of the thoracic aorta..The origins of the great vessels have an unremarkable appearance. Brachiocephalic artery, left common carotid arter y origin and left subclavian artery all have an unremarkable appearance. Right carotid artery:No abnormalities are seen along the course of the RCCA, at the right carotid bif urcation or along the cervical portions of the CHUY. Left carotid artery: Minimal calcified plaque is seen along the medial aspect of the left carotid bul b. No significant abnormalities are noted along the course of the left common carotid artery, at the left carotid bifurcation or along the course of the cervical segments of the LICA. Posterior circulation:The vertebral arteries have an unremarkable appearance. Both vertebral arteries contribute to the basilar artery origin. The basilar artery has an unremarkable appearance. The degree of stenosis, if any, is determined utilizing NASCET like criteria. In this case there is no indication of hemodynamically significant stenosis at the carotid bifurcations or elsewhere. Evaluation of the nonvascular soft tissue structures reveal no abnormality. There is no indication of cervical lymphadenopathy. No abnormalities are seen along the course of the airway. Visualized porti ons of the parotid glands and the submandibular salivary glands have a normal appearance. Thyroid gla nd has a normal appearance. Evaluation of the lung apices reveals no evidence of lung nodule or infil trate. Evaluation of the cervical spine revealed no significant abnormalities. IMPRESSION: 1. Limited study as noted above. 2. No indication of hemodynamically significant stenosis or large vessel occlusion. Signer Name: Ronny Mansfield MD Signed: 02/07/2021 5:52 PM Workstation Name: [id number]
--- NOTE | 2021-02-07 18:02 | Cat Scan Report ---
CT ABDOMEN AND PELVIS WITH CONTRAST INDICATION / CLINICAL INFORMATION: right sided abd pain. TECHNIQUE: Axial CT images were obtained through the abdomen and pelvis after IV contrast. All CT sc ans at this location are performed using CT dose reduction for ALARA by means of automated exposure c ontrol. COMPARISON: 11/03/2019 FINDINGS: LOWER CHEST: No significant abnormality. LIVER: Surgical changes from prior TIPS procedure is demonstrated. Cirrhotic morphology of the liver without focal lesion identified. Findings consistent with portal venous hypertension and varices are noted within the upper abdomen. GALLBLADDER: No significant abnormality. PANCREAS: No significant abnormality. SPLEEN: Enlarged. ADRENALS: No significant abnormality. RIGHT KIDNEY / URETER: No significant abnormality. LEFT KIDNEY / URETER: No significant abnormality. STOMACH / SMALL BOWEL: No significant abnormality. COLON: No significant abnormality. APPENDIX: No significant abnormality. PERITONEUM: No free fluid, free air or organized collection. LYMPH NODES: No significant adenopathy. AORTA / ARTERIES/ VEINS: No significant abnormality. URINARY BLADDER: No significant abnormality. REPRODUCTIVE ORGANS: No significant abnormality. ADDITIONAL FINDINGS: None. SKELETAL SYSTEM: No significant abnormality. IMPRESSION: 1. No acute abnormality. 2. Hepatic cirrhosis and findings consistent with portal venous hypertension. Prior surgical changes from TIPS procedure without definite abnormality on CT. Signer Name: Marty King MD Signed: 02/07/2021 5:58 PM Workstation Name: [id number]
--- NOTE | 2021-02-07 18:06 | Cat Scan Report ---
CTA head with intravenous contrast CLINICAL HISTORY: stroke sx TECHNIQUE: 0.625 mm thick contiguous axial scans were obtained from the skull base to the skull vertex during r apid bolus administration of intravenous contrast material. Multiplanar reconstructions were produced in the coronal and sagittal planes. In addition 3 plane MIP instructions were produced and reviewed for this report. The axial source images and reconstructed images were reviewed for this report. CONTRAST DOSE REPORT: Omnipaque 350: 80 ml administered intravenously. All CT scans at this location are performed using CT dose reduction for ALARA by means of automated e xposure control. FINDINGS: Internal carotid arteries:Huang, cavernous, opthalmic, clinoid and supraclinoid segments of the ICAs have an unremarkable appearance. Middle cerebral arteries:Normal and symmetrical M1 segments of the middle cerebral arteries are demon strated. No abnormalities are seen on evaluation of the insular or opercular branches. Anterior cerebral arteries:Bilaterally symmetrical A1 segments are demonstrated. No abnormalities are seen along the course of the A2 segments or their visualized pericallosal branches. Vertebral arteries:Bilaterally symmetrical vertebral arteries are demonstrated. Both vertebral arteri es contribute to the basilar artery origin. Basilar artery:Basilar artery has an unremarkable appearance. Posterior cerebral arteries:Bilaterally symmetrical posterior cerebral arteries are identified. A un ilateral left-sided posterior communicating artery is identified. [place]:Not intact. see above. Dural sinuses: Dural venous sinuses are well demonstrated on this exam. There is no evidence of dural sinus thrombosis. IMPRESSION: 1. No indication of intercranial stenosis or large vessel occlusion. Signer Name: Ronny Mansfield MD Signed: 02/07/2021 6:02 PM Workstation Name: [id number]
--- NOTE | 2021-02-07 18:09 | Cat Scan Report ---
CT CERVICAL SPINE WITHOUT CONTRAST INDICATION / CLINICAL INFORMATION: fall left sided numbness/weakness. TECHNIQUE: Axial CT images were obtained through the cervical spine. Sagittal and coronal reformatted images wer e produced. All CT scans at this location are performed using CT dose reduction for ALARA by means of automated exposure control. COMPARISON: None available. FINDINGS: ALIGNMENT: No significant abnormality. VERTEBRAE: No indication of fracture or bone destruction. DISC SPACES: Disc height is fairly well-maintained. DEGENERATIVE CHANGES: Anterior and posterior osteophyte formation is observed at the C2-3 and C3-4 le vels with anterior osteophyte evident at the C5-6 and C6-7 levels. In spite of these degenerative ava nges there is no indication of central canal stenosis or significant neuroforaminal narrowing. Osteoarthritic changes are observed at the atlantoaxial junction between the anterior arch of C1 and the odontoid process. CRANIOCERVICAL JUNCTION:No significant abnormality. SPINAL CANAL: Central spinal canal is adequately maintained throughout. PARASPINAL SOFT TISSUES: No significant abnormality. ADDITIONAL FINDINGS: None. LUNG APICES: No significant abnormality of visualized lungs. IMPRESSION: 1. Mild cervical spondylosis without evidence of central canal stenosis or significant neuroforaminal narrowing. Signer Name: Ronny Mansfield MD Signed: 02/07/2021 6:05 PM Workstation Name: [id number]
[2021-02-07 18:11] LABS: INR 1.35 (0.87-1.13)
[2021-02-07 18:12] LABS: Partial Thromboplastin Time 33.3 Sec. (24.2-36.6); Thrombin Time 20.3 Sec. (15.1-19.6)
--- NOTE | 2021-02-07 18:27 | Event Note ---
Date: 02/07/21 45 YO Male with ETOH Dependence complicated by Cirrhosis and Eshphageal Varices S/P TIPS procedure, DM, Obesity, Medication noncompliance presents ED for evaluation. Patient reports "my chest hurts". Patient seen and evaluated in the emergency department. All lab and imaging studies reviewed. Upon further evaluation patient localizes the epigastric area as the site of his pain. Patient denies chest pain this time my evaluation. Patient reports "I just want to get checked out. Patient seen and evaluated and found to have no neurologic deficit. Patient alert oriented x3 with good insight and no focal neurologic deficit. Patient has pain the time my evaluation. Patient found to have alcohol intoxication. Patient treated with banana bag in accordance with alcohol withdrawal protocol. Patient medically optimized and back to usual state of health and subsequently discharged home and instructed to follow-up with primary care physician within 3 to 5 days for reevaluation and further care. Patient advised to obtain Alcoholics Anonymous meeting at discharge. General: No acute distress Head: Atraumatic Eyes: normal appearance ENT: Moist mucous membranes Neck: Normal appearance, no midline tenderness Chest: Clear to auscultation bilaterally CV: Tachycardia regular rhythm Abdomen: Soft, normal bowel sounds, nontender, nondistended, no rebound or guarding Back: Normal inspection Extremity: Normal inspection, full range of motion, no tremor Neuro: Alert O x 3, no facial asymmetry, speech clear, no gross motor sensory deficit Psych: Appropriate behavior Skin: No rash
[2021-02-07] MEDS ORDERED: SUCRALFATE 1 GM/10 ML ORAL LIQD PO ONE (18:43)
[2021-02-07] MEDS ORDERED: THIAMINE 100 MG, FOLIC ACID 1 MG, MULTIPLE VITAMIN INJ, ADULT 10 ML in SODIUM CHLORIDE ... IV ONE (19:40)
[2021-02-07 21:14] VITALS: BP 142/72
== END 2021-02-07 22:19 | disposition home or self-care (01) ==
LOC: ED 14:53
DX: R07.9 Chest pain, unspecified (principal); R10.9 Unspecified abdominal pain; G81.91 Hemiplegia, unspecified affecting right dominant side; D69.6 Thrombocytopenia, unspecified; K74.60 Unspecified cirrhosis of liver; F10.129 Alcohol abuse with intoxication, unspecified; D68.9 Coagulation defect, unspecified; E11.8 Type 2 diabetes mellitus with unspecified complications; I85.00 Esophageal varices without bleeding; F17.200 Nicotine dependence, unspecified, uncomplicated; W18.30XA Fall on same level, unspecified, initial encounter; Y93.89 Activity, other specified; Y92.89 Other specified places as the place of occurrence of the external cause; Y99.8 Other external cause status
CPT/HCPCS: 36415; 70450; 70496; 70498; 71045; 72125; 74177; 80048; 80053; 82962; 84484; 85025; 85610; 85670; 85730; 93005; 96365; 96366; 96375; 99285; J3411; J3490; J7030; Q9967; 80320; Q0162; G0480